=== PATIENT | male | born 1985 | race Caucasian/White ===

== ENCOUNTER 2023-09-02 11:54 | Outpatient (AMB) | payer OTHER, SELFPAY ==
--- NOTE | 2023-09-02 12:03 | HO.NEPHOV_ITS ---
HPI HPI Comments History of Present Illness Details I had the privilege of seeing Fei in consultation for uncontrolled hypertension. He was diagnosed to have blood pressure for a while and has been on losartan and subsequently amlodipine. He has been having some cough and his losartan was discontinued. He is very active. He does not have any history of drug use. He denies any chest pain, shortness of breath, proximal nocturnal dyspnea, orthopnea, pedal edema or urinary symptoms. He does not have any orthostatic symptoms. He has been having tachycardia but no other symptoms with it. He has no history of renal dysfunction, retinopathy, proteinuria, hyp okalemia. He has family history hypertension but is quite concerned about his uncontrolled blood pressure. COUNT INCLUDES THE [facility] Medical History (Updated 09/06/23 @ 16:02 by Salvador Christian MD) Hypertension Surgical History (Updated 09/02/23 @ 12:08 by Imani Jackson MA) History of shoulder surgery Family History (Updated 09/02/23 @ 12:08 by Imani Jackson MA) Mother Hypertension Social History (Updated 09/02/23 @ 12:09 by Imani Jackson MA) Alcohol intake: never Patient Tobacco Use Status: Never used Tobacco Vital Signs 09/02/23 12:04 Height 6 ft Weight 227 lb 6 oz BMI 30.8 BP 158/110 H Blood Pressure Location Lt brachial Position Sitting Pulse 122 H Pulse Source Pulse Oximeter Physical Exam Vital Signs: Last Vital Signs Pulse 122 H 09/02/23 12:04 BP 158/110 H 09/02/23 12:04 BMI result Body Mass Index 30.8 Const General: comfortable and no acute distress Orientation/consciousness: patient oriented x3 HEENT Head: Yes normocephalic Mouth: Normal oral and palatal mucosa present Eyes EOM: EOMs intact bilaterally Neck Neck: Yes supple Resp Auscultation: clear to auscultation bilaterally Cardio Jugular venous distension: no JVD Rate: regular rate GI Palpation (GI): Soft to palpation Auscultation: normal bowel sounds General: Yes no CVA tenderness Back/Spine/Pelvis Back: no CVA tenderness Skin General skin exam: no rashes or lesions noted Neuro General: patient oriented x3 and moves all extremities Extrem General: Yes no pedal edema Assessment & Plan Assessment & Plan (1) Hypertension: Code(s): I10 - Essential (primary) hypertension Qualifiers: Hypertension type: primary hypertension Qualified Code(s): I10 - Essential (primary) hypertension Marcial Blanco has longstanding hypertension and his medications have been adjusted with a modest improvement in his blood pressure. I ordered a renin, aldosterone, aldosterone renin ratio, cortisol, TSH, calcium, plasma metanephrines along with the Doppler of renal arteries. His serum potassium and serum creatinine has been normal. I discontinued his amlodipine and reintroduced losartan at higher dose of 50 mg daily along with carvedilol 12.5 mg twice daily. He needs to maintain low-sodium diet and continue to have lifestyle modifications. Further workup and management is based on evolving data. He will be seen in the office in 2 weeks for continued care. Orders: Orders Aldosterone 09/02/23 I10 - Essential (primary) hypertension Renin 09/02/23 I10 - Essential (primary) hypertension Aldost/Renin 09/02/23 I10 - Essential (primary) hypertension Cortisol Random 09/02/23 I10 - Essential (primary) hypertension TSH reflex Free T4 09/02/23 I10 - Essential (primary) hypertension Calcium 09/02/23 I10 - Essential (primary) hypertension Metanephrines, Plasma 09/02/23 I10 - Essential (primary) hypertension US renal BI 09/02/23 I10 - Essential (primary) hypertension US renal doppler 09/02/23 I10 - Essential (primary) hypertension Medications: New carvedilol 12.5 mg PO BID 30 days 60 tabs 3RF Coding Level of Care Code New Pt Level 4 (67524) Diagnoses Primary hypertension I10 Hypertension type: primary hypertension Results Reviewed Nephrology Results: Calcium 9.8 mg/dL (8.4-10.2) 09/02/23
[2023-09-02 12:04] VITALS: BP 158/110; PULSE 122; BMI 30.8
== END 2023-09-02 12:39 | disposition home or self-care (01) ==
PROVIDERS: PCP Family Medicine; Referring Provider Family Medicine; Visit Provider Internal Medicine Nephrology
DX: I10 Essential (primary) hypertension (principal)
CPT/HCPCS: 99204

== ENCOUNTER 2023-09-02 11:54 | Outpatient (REF) | payer OTHER, SELFPAY ==
[2023-09-02 13:31] LABS: Calcium 9.8 mg/dL (8.4-10.2)
[2023-09-02 13:41] LABS: Cortisol Random 8.3 ug/dL; TSH reflex Free T4 1.52 uIU/mL (0.32-4.0)
[2023-09-07 16:04] LABS: Renin 1.07 ng/mL/h (0.25-5.82)
[2023-09-07 16:23] LABS: Aldosterone/Renin Ratio 3.9 Ratio (0.9-28.9); Plasma Renin Activity 1.55 ng/mL/h (0.25-5.82)
[2023-09-07 22:09] LABS: Metanephrine, Free 43 pg/mL (<=57); Normetanephrines, Free 106 pg/mL (<=148); Total Metanephrine, Free 149 pg/mL (<=205)
== END 2023-09-02 11:55 | disposition home or self-care (01) ==
LOC: HO.LAB 11:54
PROVIDERS: PCP Family Medicine; Referring Provider Family Medicine; Visit Provider Internal Medicine Nephrology
DX: I10 Essential (primary) hypertension (principal)
CPT/HCPCS: 36415; 82088; 82310; 82533; 83835; 84244; 84443

== ENCOUNTER 2023-09-13 14:04 | Outpatient (AMB) | payer OTHER, SELFPAY ==
[2023-09-13 14:28] VITALS: BP 160/110; PULSE 97; O2SAT 96; BMI 31.4
--- NOTE | 2023-09-13 14:28 | HO.NEPHOV ---
HPI HPI Comments History of Present Illness Details I had the privilege of seeing Fei in follow up for uncontrolled hypertension. He was diagnosed to have blood pressure for a while and has been on losartan and subsequently amlodipine. He has been having some cough and his losartan was discontinued. He is very active. He does not have any history of drug use. He denies any chest pain, shortness of breath, proximal nocturnal dyspnea, orthopnea, pedal edema or urinary symptoms. He does not have any orthostatic symptoms. He has been having tachycardia but no other symptoms with it. He has no history of renal dysfunction, retinopathy, proteinuria, hypokalemia. He has family history hypertension but is quite concerned about his uncontrolled blood pressure. He was initiated back on losartan 50 mg daily along with carvedilol 12.5 mg twice daily after discontinuing amlodipine, at the last visit. His blood pressure control is better but still remains suboptimal [facility] Medical History (Updated 09/06/23 @ 16:02 by Salvador Christian MD) Hypertension Surgical History History of shoulder surgery Family History Mother Hypertension Social History Alcohol intake: never Patient Tobacco Use Status: Never used Tobacco Vital Signs 09/13/23 14:28 09/13/23 16:22 Height 6 ft Weight 231 lb 6 oz BMI 31.4 BP 160/110 H 140/90 H Blood Pressure Location Lt brachial Position Sitting Pulse 97 Pulse Source Pulse Oximeter Pulse Oximetry (%) 96 Oxygen Delivery Method Room Air Physical Exam Vital Signs: Last Vital Signs Pulse 97 09/13/23 14:28 BP 160/110 H 09/13/23 14:28 Pulse Ox 96 09/13/23 14:28 Oxygen Delivery Method Room Air 09/13/23 14:28 BMI result Body Mass Index 31.4 Const General: comfortable and no acute distress Orientation/consciousness: patient oriented x3 HEENT Head: Yes normocephalic Mouth: Normal oral and palatal mucosa present Eyes EOM: EOMs intact bilaterally Neck Neck: Yes supple Resp Auscultation: clear to auscultation bilaterally Cardio Jugular venous distension: no JVD Rate: regular rate GI Palpation (GI): Soft to palpation Auscultation: normal bowel sounds General: Yes no CVA tenderness Back/Spine/Pelvis Back: no CVA tenderness Skin General skin exam: no rashes or lesions noted Neuro General: patient oriented x3 and moves all extremities Extrem General: Yes no pedal edema Assessment & Plan Assessment & Plan (1) Hypertension: Code(s): I10 - Essential (primary) hypertension Qualifiers: Hypertension type: primary hypertension Qualified Code(s): I10 - Essential (primary) hypertension Plan Fei has longstanding hypertension and his medications have been adjusted with improvement in his blood pressure. His renin, aldosterone, aldosterone renin ratio, cortisol, TSH, calcium, plasma metanephrines were unremarkable. Renal ultrasound showed normal size kidneys. His serum potassium and serum creatinine has been normal. He was asked to continue losartan at 50 mg daily . I increased carvedilol to 25 mg twice daily. He needs to maintain low-sodium diet and continue to have lifestyle modifications. Further workup and management is based on evolving data Orders: Orders Electrolytes Today I10 - Essential (primary) hypertension Blood Urea Nitrogen Today I10 - Essential (primary) hypertension Calcium Today I10 - Essential (primary) hypertension Creatinine Today I10 - Essential (primary) hypertension Medications: New losartan 50 mg (2 x 25 mg) PO DAILY 90 tabs 3RF Changed From carvedilol 12.5 mg PO BID 30 days 60 tabs 3RF To carvedilol 25 mg PO BID 30 days 60 tabs 3RF Coding Level of Care Code Est Pt Level 4 (08521) Diagnoses Primary hypertension I10 Hypertension type: primary hypertension Results Reviewed Nephrology Results: Calcium 9.8 mg/dL (8.4-10.2) 09/02/23
[2023-09-13 16:22] VITALS: BP 140/90
== END 2023-09-13 14:51 | disposition home or self-care (01) ==
PROVIDERS: PCP Family Medicine; Visit Provider Internal Medicine Nephrology
DX: I10 Essential (primary) hypertension (principal)
CPT/HCPCS: 99214

== ENCOUNTER → 2023-09-13 14:04 | Outpatient (BNVA) | payer OTHER, SELFPAY | PROVIDERS: PCP Family Medicine; Visit Provider Internal Medicine Nephrology ==